=== PATIENT | male | born 1965 | race Caucasian/White ===

== ENCOUNTER 2018-09-01 05:49 | Emergency (ER) | payer MEDICAID ==
[~2018-09-01] VITALS: Ht 185.4 cm; Wt 122.5 kg
[2018-09-01 07:00] LABS: Basophils # (auto) 0.1 uL; Basophils % (auto) 0.8 % (0.0-2.0); Eosinophils # (auto) 0.3 uL; Eosinophils % (auto) 4.5 % (0.0-7.0); Hematocrit 43.1 % (41.0-53.0); Lymphocytes # (auto) 2.2 uL; Lymphocytes % (auto) 30.3 % (10.0-50.0); Mean Corpuscular Hemoglobin 31.4 pg (28.0-32.0); Mean Corpuscular Hgb Conc. 34.8 g/dL (32.0-36.0); Mean Corpuscular Volume 90.3 fL (80.0-100.0); Monocytes # (auto) 0.6 uL; Monocytes % (auto) 8.5 % (0.0-12.0); Neutrophils % (auto) 55.9 % (37.0-80.0); Nucleated Red Blood Cells % 0.1 %; Platelet Count (auto) 217 10^3/uL (140-450); Red Blood Cells 4.78 10^6/uL (4.5-5.90); Red Cell Distribution Width 12.7 % (11.8-14.3); White Blood Cell 7.2 10^3/uL (4.4-10.8)
[2018-09-01] MEDS: SODIUM CHLORIDE 0.9% 1,000 ML IV ONE ×2 (07:07)
[2018-09-01 07:14] LABS: BUN/Creatinine Ratio 17.1; Calcium 8.8 mg/dL (8.5-10.1); Potassium 3.9 mmol/L (3.5-5.1)
[2018-09-01 07:23] LABS: Magnesium 2.6 mg/dL (1.6-2.6)
[2018-09-01] MEDS: IOHEXOL 350 MG/ML 100ML IJ ONE (08:10)
[2018-09-01 09:39] VITALS: BP 88/47
[2018-09-01 11:23] LABS: Urine Bacteria NONE SEEN /hpf (None Seen); Urine Blood Negative /uL (Negative); Urine Mucus FEW (None Seen); Urine WBC 2 /hpf (0 - 3)
[2018-09-01 11:26] LABS: Amphetamine Screen, Urine NEGATIVE (NEGATIVE); Barbiturate Scree,Urine NEGATIVE (NEGATIVE); Benzodiazephine Screen, Urine NEGATIVE (NEGATIVE); Cannabinoid Screen, Urine NEGATIVE (NEGATIVE); Cocaine Screen, Urine NEGATIVE (NEGATIVE); Opiate Scree,Urine NEGATIVE (NEGATIVE)
[2018-09-01 11:39] LABS: Phencyclidine Screen, Urine NEGATIVE (NEGATIVE)
[2018-09-01 12:03] LABS: Urine Specific Gravity > 1.050 (1.001-1.035)
== END 2018-09-01 11:17 | disposition home or self-care (01) ==
LOC: EDBD 05:49 → ER 05:56
DX: M47.894 Other spondylosis, thoracic region (principal); R55 Syncope and collapse; M62.838 Other muscle spasm
CPT/HCPCS: 36415; 71275; 72128; 80048; 80307; 81001; 82962; 83735; 84443; 84484; 85025; 85379; 93005; 94761; 96360; 96361; 99284; J7030; Q9967